=== PATIENT | female | born 1965 | race Hispanic/Latino ===

== ENCOUNTER 2019-08-11 22:59 | Observation (INO) | payer OTHER ==
[~2019-08-11] VITALS: Ht 162.6 cm; Wt 88.5 kg
[2019-08-11 23:44] LABS: BASOPHILS % 0.4 % (0.0-1.0); EOSINOPHILS # (AUTO) 0.2 (0.0-0.4); EOSINOPHILS % 2.4 % (0.0-6.0); HEMATOCRIT 39.3 % (34.2-44.1); HEMOGLOBIN 12.8 g/dL (12.0-16.0); LYMPHOCYTES # (AUTO) 3.1 (1.0-3.2); LYMPHOCYTES % 37.6 % (18.0-39.1); MEAN CORPUSCULAR HGB CONC 32.6 g/dL (31-35); MEAN CORPUSCULAR VOLUME 88.9 fL (81-99); MONOCYTES # (AUTO) 0.7 (0.2-0.8); MONOCYTES % 8.5 % (4.4-11.3); NEUTROPHILS # (AUTO) 4.3 (2.1-6.9); NEUTROPHILS % 50.9 % (38.7-80.0); PLATELET COUNT 239 x10e3/uL (140-360); RED BLOOD COUNT 4.42 x10e6/uL (3.6-5.1); RED CELL DISTRIBUTION WIDTH 13.9 % (11.7-14.4)
[2019-08-11 23:58] LABS: ALANINE AMINOTRANSFERASE 15 IU/L (0-55); ALBUMIN 3.6 g/dL (3.5-5.0); ALBUMIN/GLOBULIN RATIO 0.9 (0.8-2.0); ALKALINE PHOSPHATASE 77 IU/L (40-150); ANION GAP 12.1 mmol/L (8-16); BLOOD UREA NITROGEN 17 mg/dL (7-26); BUN/CREATININE RATIO 21 (6-25); CALCIUM 8.6 mg/dL (8.4-10.2); CARBON DIOXIDE 25 mmol/L (22-29); CHLORIDE 104 mmol/L (98-107); CREATINE KINASE 76 IU/L (29-168); CREATININE, SERUM 0.81 mg/dL (0.57-1.11); EST GLOMERULAR FILTRATION RATE > 60 ML/MIN (60-); GLUCOSE 102 mg/dL (74-118); POTASSIUM 4.1 mmol/L (3.5-5.1); SODIUM 137 mmol/L (136-145)
--- NOTE | 2019-08-12 01:02 | Diagnostic Imaging Report ---
EXAMINATION: CHEST SINGLE (PORTABLE) INDICATION: Chest pain COMPARISON: None FINDINGS: AP view TUBES and LINES: None. LUNGS: Lungs are well inflated. Lungs are clear. There is no evidence of pneumonia or pulmonary edema. PLEURA: No pleural effusion or pneumothorax. HEART AND MEDIASTINUM: The cardiomediastinal silhouette is unremarkable. BONES AND SOFT TISSUES: No acute osseous lesion. Soft tissues are unremarkable. UPPER ABDOMEN: No free air under the diaphragm. IMPRESSION: No acute thoracic radiographic abnormality. Signed by: Yang Dave DO on 08/12/2019 12:58 AM
[2019-08-12] MEDS ORDERED: SODIUM CHLORIDE FLUSH 10 ML SYR INJ PRN (01:15)
[2019-08-12] MEDS ORDERED: MORPHINE SULFATE 2 MG/ML SYR 1ML IV PRN (01:15)
[2019-08-12] MEDS ORDERED: ONDANSETRON HCL INJ 2MG/ML 2ML 2 MG/ML VIAL IV PRN (01:15)
--- OUTSIDE RECORDS SUMMARY | 2019-08-12 01:29 | XMS REPORT ---
Author [facility] Address Unknown Phone Unavailable Care Team Providers Care Computer Aided Design Technician Name Role Phone Jean-Pierre LEBLANC Unavailable Unavailable Problems This patient has no known problems. Allergies, Adverse Reactions, Alerts This patient has no known allergies or adverse reactions. Medications This patient has no known medications. Results Test Description Test Time Test Comments Text Results Atomic Results Result Comments CHEST SINGLE (PORTABLE) 2019-08-12 00:58:00 [place] [id number] Patient Name: DINORAH ALEXANDER MR #: [id number] : 1965 Age/Sex: 54/F Req #: [id number] Adm Physician: Ordered by: JOHNATHON LEBLANC MD Report #: [id number] Location: ER Room/Bed: Procedure: [id number] DX/CHEST SINGLE (PORTABLE) Exam Date: 08/12/19 Exam Time: 0025 REPORT STATUS: Signed EXAMINATION: CHEST SINGLE (PORTABLE) INDICATION: Chest pain COMPARISON: None FINDINGS: AP view TUBES and LINES: None. LUNGS: Lungs are well inflated. Lungs are clear. There is no evidence of pneumonia or pulmonary edema. PLEURA: No pleural effusion or pneumothorax. HEART AND MEDIASTINUM: The cardiomediastinal silhouette is unremarkable. BONES AND SOFT TISSUES: No acute osseous lesion. Soft tissues are unremarkable. UPPER ABDOMEN: No free air under the diaphragm. IMPRESSION: No acute thoracic radiographic abnormality. Signed by: Yang Dave DO on 08/12/2019 12:58 AM Dictated By: YANG DAVE DO Transcribed By: STACY on 08/12/1957 COPY TO: JOHNATHON LEBLANC MD
--- NOTE | 2019-08-12 03:53 | NUR ---
PT PLACED ON HOSPITAL BED FOR PATIENT SAFETY AND COMFORT MEASURES.
[2019-08-12] MEDS: NITROGLYCERIN 2% OINT 1 GM PKT TOP SCH ×3 (06:28→18:00)
[2019-08-12 06:57] LABS: CREATINE KINASE MB 2.5 ng/mL (0-5.0)
--- NOTE | 2019-08-12 07:01 | NUR ---
report given to roe horton
[2019-08-12] MEDS ORDERED: ASPIRIN 81 MG ENTERIC COATED PO SCH (09:00)
[2019-08-12] MEDS ORDERED: FAMOTIDINE 20 MG/2 ML VIAL IV SCH (09:00)
[2019-08-12] MEDS ORDERED: LOSARTAN POTASS50 MG PO (11:59)
[2019-08-12] MEDS ORDERED: TRAZODONE HCL100 MG PO (11:59)
[2019-08-12] MEDS ORDERED: CITALOPRAM HBR40 MG PO (11:59)
[2019-08-12] MEDS ORDERED: ESIDRIX25 MG PO (11:59)
[2019-08-12] MEDS ORDERED: LANSOPRAZOLE30 MG PO (11:59)
[2019-08-12 12:35] VITALS: BP 162/79
[2019-08-12] MEDS ORDERED: ACETAMINOPHEN 325 MG TAB PO PRN (13:45)
[2019-08-12] MEDS ORDERED: METOPROLOL TART50 MG PO ×2 (13:53→15:04)
[2019-08-12 13:54] VITALS: BP 162/79
--- NOTE | 2019-08-12 13:58 | NUR ---
PATIENT ARRIVED ON THE UNIT AT 1216 PER WHEELCHAIR FROM THE ER. PATIENT IN STABLE CONDITION WITH NO S/S OF RESPIRATORY DISTRESS. PATIENT C/O HEADACHE PAIN 04/18- CALL PLACED OUT TO DR. QUEZADA FOR TYLENOL (PATIENT'S REQUEST). PATIENT STATES CHEST PAIN A /10 AT THE MOMENT. SKINS INTACT. TELEMETRY APPLIED. CALL LIGHT IS WITHIN REACH, PATIENT INSTRUCTED TO CALL FOR ASSISTANCE NEEDED.
[2019-08-12] MEDS ORDERED: NON-FORMULARY MEDICATION (Trazodone Hcl 100 MG) PO PRN (14:00)
[2019-08-12] MEDS ORDERED: HYDROCHLOROTHIAZIDE 25 MG TAB PO SCH (14:30)
[2019-08-12] MEDS ORDERED: METOPROLOL TARTRATE 50 MG TAB PO SCH (15:00)
[2019-08-12 16:00] VITALS: BP 148/76
[2019-08-12 17:45] VITALS: BP 146/85
--- NOTE | 2019-08-12 19:41 | NUR ---
PATIENT DISCHARGE HOME- PATIENT OFF THE UNIT AT 1848 PER WHEELCHAIR ACCOMPANIED BY RN TO THE FRONT LOBBY. PATIENT IS IN STABLE CONDITION WITH NO S/S OF RESPIRATORY DISTRESS. NO PAIN VOICED. IV REMOVED WITH TIP INTACT AT 1825. DISCHARGE TEACHING, INSTRUCTIONS, AND MEDICATIONS GIVEN TO THE PATIENT. ALL PERSONAL ITEMS TAKEN WITH THE PATIENT.
[2019-08-12] MEDS ORDERED: TRAZODONE HCL 50 MG TAB PO PRN (21:00)
--- NOTE | 2019-08-12 22:49 | History and Physical ---
PRIMARY CARE PHYSICIAN: Dr. Dewayne Richardson. CHIEF COMPLAINT: Chest pain. HISTORY OF PRESENT ILLNESS: This is a 54-year-old female with past medical history of hypertension and depression, presented with complaints of chest pain and headache that started late last night. She reports missing a dose of her blood pressure medication and when she checked her blood pressure, it was elevated, systolic blood pressure in the 200s, so she called the ambulance and was brought in. She denies any radiating pain to the arm or back. She denies any fever, chills, shortness of breath, diaphoresis, or dizziness. In the ER, blood pressure was 157/87. She was admitted under observation for ACS rule out. PAST MEDICAL HISTORY: 1. Hypertension. 2. Depression. PAST SURGICAL HISTORY: None. FAMILY MEDICAL HISTORY: Reports father has high blood pressure. Mother, none. SOCIAL HISTORY: She denies any tobacco, alcohol, or drug use. ALLERGIES: NO KNOWN ALLERGIES. REVIEW OF SYSTEMS: GENERAL: No fever. HEENT: Headache. No trauma to the head. LUNGS: No shortness of breath or cough. CARDIOVASCULAR: Chest pain is resolved now, 11/18. GI: No nausea, vomiting. NEUROLOGIC: Headache. MUSCULOSKELETAL: No lower extremity edema. Skin: Grossly intact. PHYSICAL ASSESSMENT: VITAL SIGNS: Temperature 97.1, pulse is 72, respirations 19, blood pressure is 162/79, pulse ox is 97% on room air. GENERAL: No acute distress. Only complains of headache due to high blood pressure. HEENT: Normocephalic, atraumatic. LUNGS: Clear to auscultation. CARDIOVASCULAR: Normal rate and rhythm. GI: Soft and nontender. Active bowel sounds. NEUROLOGIC: Alert, awake, oriented x3. MUSCULOSKELETAL: Active ROM. No edema noted. SKIN: Grossly intact. PSYCHIATRIC: Depression and stress due to her son having bipolar. LABORATORY DATA: WBCs 8.35, hemoglobin 12.8, hematocrit 39.3, platelets 239. Sodium 137, potassium 4.1, BUN 17, creatinine 0.81, estimated GFR greater than 60. AST 21, ALT 15. Troponin x2 negative, 0.002 and 0.036, CK 76. IMAGING: Chest x-ray was unremarkable. IMPRESSION: 1. Chest pain due to elevated blood pressure. Ruled out acute coronary syndrome. Troponin x2 negative. No EKG changes. Chest pain likely due to missing blood pressure dose and stress. 2. Accelerated hypertension. We will resume her home metoprolol. We will change dosing to 50 mg b.i.d. instead of 100 mg once daily. We will resume hydrochlorothiazide as well. 3. Headache, likely due to elevated blood pressure. No dizziness or focal weakness noted. We will give Tylenol as needed and lower blood pressure. 4. Depression. We will resume her home medication. PLAN: We will continue to trend her blood pressure. We will give her Tylenol for headache. We will discharge home later on today if headache and blood pressure improves. She is advised on taking her blood pressure medications as prescribed, and reducing stress as much as possible. Follow up with Dr. Richardson in 1 week for blood pressure re-evaluation. Dictated by FLORI Fabian Marian Dunne MD MY/MODL /[id number] cc: Dewayne Richardson
[2019-08-13] MEDS ORDERED: PANTOPRAZOLE SOD 40 MG TABEC PO SCH (07:30)
[2019-08-13] MEDS ORDERED: HYDROCHLOROTHIAZIDE 25 MG TAB PO SCH (09:00)
[2019-08-13] MEDS ORDERED: NON-FORMULARY MEDICATION (Lansoprazole 30 MG) PO SCH (09:00)
[2019-08-13] MEDS ORDERED: NON-FORMULARY MEDICATION (Citalopram Hydrobromide (Citalopram Hbr) 40 MG) PO SCH (09:00)
[2019-08-13] MEDS ORDERED: NON-FORMULARY MEDICATION (Losartan Potassium 50 MG) PO SCH (09:00)
[2019-08-13] MEDS ORDERED: CITALOPRAM HYDROBROMIDE 20 MG TAB PO SCH (09:00)
== END 2019-08-12 15:48 | disposition home or self-care (01) ==
LOC: ER 22:59 → ERHOLD 08-12 01:26 → MED/SURG3 08-12 12:16
PROVIDERS: ADMIT Internal Medicine; ATTEND Internal Medicine
DX: R07.89 Other chest pain (principal); I10 Essential (primary) hypertension; R51 Headache; F32.9 Major depressive disorder, single episode, unspecified; Z82.49 Family history of ischemic heart disease and other diseases of the circulatory system
CPT/HCPCS: 36415 ×2; 71045; 80053; 82550 ×2; 82553 ×2; 84484 ×2; 85025; 93005; 93306; 99284; G0378; J2270

== ENCOUNTER 2022-01-14 14:25 | Emergency (ER) | payer OTHER ==
[~2022-01-14] VITALS: Ht 162.6 cm; Wt 88.5 kg
[~2022-01-14 14:25] MED LIST: CITALOPRAM HBR40 MG PO; ESIDRIX25 MG PO; LANSOPRAZOLE30 MG PO; LOSARTAN POTASS50 MG PO; METOPROLOL TART50 MG PO; TRAZODONE HCL100 MG PO
[2022-01-14] MEDS ORDERED: AMLODIPINE BESYL5 MG PO (14:33)
[2022-01-14] MEDS ORDERED: FUROSEMIDE40 MG PO (14:33)
[2022-01-14] MEDS ORDERED: LOSARTAN POTAS100 MG PO (14:33)
[2022-01-14] MEDS ORDERED: CLONIDINE HCL 0.2 MG TAB PO ONE (14:45)
[2022-01-14 14:59] LABS: BASOPHILS # (AUTO) 0.1 (0.0-0.1); BASOPHILS % 0.6 % (0.0-1.0); EOSINOPHILS # (AUTO) 0.1 (0.0-0.4); EOSINOPHILS % 1.1 % (0.0-6.0); HEMATOCRIT 43.9 % (34.2-44.1); HEMOGLOBIN 14.4 g/dL (12.0-16.0); LYMPHOCYTES % 36.5 % (18.0-39.1); MEAN CORPUSCULAR HEMOGLOBIN 28.9 pg (28-32); MEAN CORPUSCULAR HGB CONC 32.8 g/dL (31-35); MEAN CORPUSCULAR VOLUME 88.2 fL (81-99); MONOCYTES # (AUTO) 0.6 (0.2-0.8); MONOCYTES % 7.3 % (4.4-11.3); NEUTROPHILS # (AUTO) 4.4 (2.1-6.9); NEUTROPHILS % 54.3 % (38.7-80.0); PLATELET COUNT 302 x10e3/uL (140-360); RED BLOOD COUNT 4.98 x10e6/uL (3.6-5.1); RED CELL DISTRIBUTION WIDTH 14.6 % (11.7-14.4)
[2022-01-14] MEDS ORDERED: CLONIDINE HCL 0.1 MG TAB PO NR (15:00)
[2022-01-14] MEDS ORDERED: CLONIDINE HCL 0.1 MG TAB ONE (15:16)
[2022-01-14 15:21] LABS: ALBUMIN 3.9 g/dL (3.5-5.0); ALBUMIN/GLOBULIN RATIO 0.8 (0.8-2.0); ANION GAP 11.1 mmol/L (8-16); CALCIUM 9.7 mg/dL (8.4-10.2); CREATININE, SERUM 0.74 mg/dL (0.57-1.11); POTASSIUM 4.1 mmol/L (3.5-5.1)
[2022-01-14 16:46] VITALS: BP 127/74
== END 2022-01-14 16:48 | disposition home or self-care (01) ==
LOC: ER 14:35
DX: I10 Essential (primary) hypertension (principal); R51.9 Headache, unspecified; F32.A Depression, unspecified
CPT/HCPCS: 36415; 70450; 71045; 80053; 83880; 84484; 85025; 93005; 99284

== ENCOUNTER 2022-05-31 14:18 | Emergency (ER) | payer OTHER ==
[~2022-05-31] VITALS: Ht 162.6 cm; Wt 88.5 kg
[~2022-05-31 14:18] MED LIST changes: +AMLODIPINE BESYL5 MG PO; +FUROSEMIDE40 MG PO; +LOSARTAN POTAS100 MG PO
[2022-05-31] MEDS ORDERED: KETOROLAC TROMETHAMINE 60 MG/2 ML VIAL IM NR (15:15)
[2022-05-31] MEDS ORDERED: KETOROLAC TROMETHAMINE 30 MG/ML VIAL ONE (15:22)
== END 2022-05-31 15:42 | disposition home or self-care (01) ==
LOC: ER 14:42
DX: M54.32 Sciatica, left side (principal); I11.0 Hypertensive heart disease with heart failure; I50.9 Heart failure, unspecified; F32.A Depression, unspecified
CPT/HCPCS: 99282; J1885

== ENCOUNTER 2024-08-05 18:25 | Emergency (ER) | payer OTHER ==
[~2024-08-05] VITALS: Ht 162.6 cm; Wt 88.5 kg
[2024-08-05 18:37] VITALS: PULSE 106; RESP 20; TEMP 98.2
[2024-08-05 19:32] LABS: BASOPHILS # (AUTO) 0.1 (0.0-0.1); BASOPHILS % 0.3 % (0.0-1.0); EOSINOPHILS # (AUTO) 0.1 (0.0-0.4); EOSINOPHILS % 0.3 % (0.0-6.0); HEMATOCRIT 41.7 % (34.2-44.1); HEMOGLOBIN 13.5 g/dL (12.0-16.0); LYMPHOCYTES # (AUTO) 4.1 (1.0-3.2); LYMPHOCYTES % 25.6 % (18.0-39.1); MEAN CORPUSCULAR HEMOGLOBIN 29.3 pg (28-32); MEAN CORPUSCULAR HGB CONC 32.4 g/dL (31-35); MEAN CORPUSCULAR VOLUME 90.5 fL (81-99); NEUTROPHILS # (AUTO) 10.9 (2.1-6.9); NEUTROPHILS % 67.4 % (38.7-80.0); PLATELET COUNT 301 x10e3/uL (140-360); RED BLOOD COUNT 4.61 x10e6/uL (3.6-5.1); RED CELL DISTRIBUTION WIDTH 14.6 % (11.7-14.4); WHITE BLOOD COUNT 16.08 x10e3/uL (4.8-10.8)
[2024-08-05 19:36] LABS: CLARITY,URINE TURBID (CLEAR); COLOR,URINE RED (YELLOW)
[2024-08-05 19:48] LABS: ANION GAP 14.8 mmol/L (8-16); BILIRUBIN,TOTAL 0.2 mg/dL (0.2-1.2); CALCIUM 9.7 mg/dL (8.4-10.2); CREATININE, SERUM 0.75 mg/dL (0.57-1.11); GLUCOSE, URINE NEGATIVE (NEGATIVE); KETONES,URINE NEGATIVE (NEGATIVE); LEUKOCYTE ESTERASE ,URINE TRACE (NEGATIVE); NITRITE,URINE NEGATIVE (NEGATIVE); PH,URINE 7 (5 - 7); POTASSIUM 3.8 mmol/L (3.5-5.1); PROTEIN,URINE DIPSTICK >=300 (NEGATIVE); TOTAL PROTEIN 8.2 g/dL (6.5-8.1)
[2024-08-05 19:49] LABS: BILIRUBIN,URINE NEGATIVE (NEGATIVE); URINE UROBILINOGEN 0.2 mg/dL (0.2 - 1)
[2024-08-05 19:50] LABS: RBC,URINE >50 /HPF (0-5); WBC,URINE (MAN) 0-5 /HPF (0-5)
[2024-08-05] MEDS: ONDANSETRON HCL INJ 2MG/ML 2ML 2 MG/ML VIAL IV STA (20:06)
[2024-08-05] MEDS: SODIUM CHLORIDE 0.9% 1000ML 1,000 ML IV STA (20:06)
[2024-08-05] MEDS: KETOROLAC TROMETHAMINE 30 MG/ML VIAL IV STA (20:06)
[2024-08-05] MEDS ORDERED: CIPRO500 MG PO (20:21)
[2024-08-05] MEDS ORDERED: KETOROLAC TROME10 MG PO (20:43)
[2024-08-05 20:53] VITALS: BP 142/79; PULSE 87; RESP 17; TEMP 98.9; O2SAT 100
== END 2024-08-05 20:52 | disposition home or self-care (01) ==
LOC: ER 18:32
DX: R31.9 Hematuria, unspecified (principal); R10.30 Lower abdominal pain, unspecified; N28.1 Cyst of kidney, acquired; I10 Essential (primary) hypertension; I50.9 Heart failure, unspecified; F32.A Depression, unspecified
CPT/HCPCS: 36415; 74176; 80053; 81001; 83690; 85025; 99284; J1885; J2405; J7030

== ENCOUNTER → 2025-01-06 | Day surgery (SDC) | payer OTHER ==
[~2025-01-06] MED LIST changes: +CEFUROXIME250 MG PO; +CIPRO500 MG PO; +CRESTOR40 MG PO; +FENTANYL CITRATE/PF 100MCG/2 ML INJ ONE; +GLUCAGON FOR INJ 1 MG VIAL ONE; +HYOSCYAMINE SULFATE 0.5 MG/ML INJ ONE; +KETOROLAC TROME10 MG PO; +MIDAZOLAM HCL 2 MG/2 ML VIAL ONE; +MINOXIDIL2.5 MG PO; +OZEMPIC0.25 MG/02 SC; +PANTOPRAZOLE SO40 MG PO; +PROPOFOL IV EMULSION 10 MG/ML 20 ML VIAL ONE
[2025-01-06] MEDS: LACTATED RINGER'S 1,000 ML ONE (10:56)
[2025-01-06 13:20] VITALS: BP 122/80; PULSE 86; RESP 16; O2SAT 98
== END | disposition home or self-care (01) ==
LOC: OR 10:14
PROVIDERS: ATTEND Internal Medicine Gastroenterology
DX: K29.70 Gastritis, unspecified, without bleeding (principal); K63.5 Polyp of colon; K62.1 Rectal polyp; K21.00 Gastro-esophageal reflux disease with esophagitis, without bleeding; K59.09 Other constipation; K31.89 Other diseases of stomach and duodenum; K62.89 Other specified diseases of anus and rectum; K57.30 Diverticulosis of large intestine without perforation or abscess without bleeding; K64.8 Other hemorrhoids; Z71.3 Dietary counseling and surveillance; I10 Essential (primary) hypertension; Z71.89 Other specified counseling; E78.5 Hyperlipidemia, unspecified; F32.A Depression, unspecified; Z01.810 Encounter for preprocedural cardiovascular examination; Z79.85 Long-term (current) use of injectable non-insulin antidiabetic drugs; Z79.899 Other long term (current) drug therapy; Z68.32 Body mass index [BMI] 32.0-32.9, adult
CPT/HCPCS: 43239; 45385; 93005; J1610; J1980; J2250; J2470; J2704; J3010; J7121; 45378

== ENCOUNTER 2025-04-05 10:24 | Inpatient (IN) | payer OTHER ==
[2025-03-30 16:21] LABS: BASOPHILS % 0.5 % (0.0-1.0); EOSINOPHILS # (AUTO) 0.1 (0.0-0.4); EOSINOPHILS % 1.2 % (0.0-6.0); HEMATOCRIT 37.1 % (34.2-44.1); HEMOGLOBIN 12.2 g/dL (12.0-16.0); LYMPHOCYTES # (AUTO) 2.9 (1.0-3.2); LYMPHOCYTES % 36.9 % (18.0-39.1); MEAN CORPUSCULAR HGB CONC 32.9 g/dL (31-35); MEAN CORPUSCULAR VOLUME 88.1 fL (81-99); MONOCYTES # (AUTO) 0.7 (0.2-0.8); MONOCYTES % 8.4 % (4.4-11.3); NEUTROPHILS # (AUTO) 4.1 (2.1-6.9); NEUTROPHILS % 52.7 % (38.7-80.0); PLATELET COUNT 250 x10e3/uL (140-360); RED BLOOD COUNT 4.21 x10e6/uL (3.6-5.1); RED CELL DISTRIBUTION WIDTH 15.2 % (11.7-14.4); WHITE BLOOD COUNT 7.76 x10e3/uL (4.8-10.8)
[2025-03-30 16:38] LABS: CALCIUM 9.4 mg/dL (8.4-10.2); CREATININE, SERUM 0.75 mg/dL (0.57-1.11)
[~2025-04-05] VITALS: Ht 165.1 cm; Wt 88.9 kg
[~2025-04-05 10:24] MED LIST changes: -FENTANYL CITRATE/PF 100MCG/2 ML INJ ONE; -GLUCAGON FOR INJ 1 MG VIAL ONE; -HYOSCYAMINE SULFATE 0.5 MG/ML INJ ONE; -MIDAZOLAM HCL 2 MG/2 ML VIAL ONE; -PROPOFOL IV EMULSION 10 MG/ML 20 ML VIAL ONE
[2025-04-05] MEDS: SODIUM CHLORIDE 0.9% 1000ML 1,000 ML ONE (11:02)
[2025-04-05] MEDS: PIPERACILLIN/TAZOBACTAM 3.375 GM VIAL ONE (11:02)
[2025-04-05] MEDS: CLINDAMYCIN 600MG / 50ML 50 ML IV ONE (11:03)
[2025-04-05] MEDS: GENTAMICIN 80MG/NS 100 ML 200 ML IV ONE (11:04)
[2025-04-05] MEDS ORDERED: LIDOCAINE HCL 2% LOCAL INJ 5 ML SDV VIAL INJ ONE (12:53)
[2025-04-05] MEDS ORDERED: ROCURONIUM BROMIDE 1 ML IV ONE (12:53)
[2025-04-05] MEDS ORDERED: PROPOFOL IV EMULSION 10 MG/ML 20 ML VIAL ONE (12:53)
[2025-04-05] MEDS ORDERED: FENTANYL CITRATE/PF 100MCG/2 ML INJ ONE (13:43)
[2025-04-05] MEDS ORDERED: ACETAMINOPHEN 1000 MG/100 ML 100 ML IV ONE (13:53)
[2025-04-05] MEDS ORDERED: DEXAMETHASONE SOD PHOS INJ 4 MG/ML SDV ONE (13:53)
[2025-04-05] MEDS ORDERED: ONDANSETRON HCL INJ 2MG/ML 2ML 2 MG/ML VIAL ONE (13:53)
[2025-04-05] MEDS ORDERED: SEVOFLURANE INHAL SOLN 250 ML PEN BTL ONE ×2 (13:53→16:52)
[2025-04-05] MEDS ORDERED: EPHEDRINE SULFATE INJ 50 MG/ML VIAL ONE (14:32)
[2025-04-05] MEDS ORDERED: SUGAMMADEX SODIUM 200 MG/2 ML VIAL IV ONE (14:48)
[2025-04-05] MEDS ORDERED: DIPHENHYDRAMINE HCL INJ 50 MG/ML VIAL IM PRN (15:30)
[2025-04-05] MEDS ORDERED: ONDANSETRON HCL INJ 2MG/ML 2ML 2 MG/ML VIAL IV PRN (15:30)
[2025-04-05] MEDS: FENTANYL CITRATE/PF 100MCG/2 ML INJ ONE (15:50)
[2025-04-05 16:36] VITALS: BP 141/85; PULSE 68; TEMP 97.4; O2SAT 100
[2025-04-05] MEDS: SENNA-S TABLET PO SCH (17:00)
[2025-04-05] MEDS: PHENAZOPYRIDINE HCL 100 MG TAB PO PRN (17:02)
[2025-04-05] MEDS: SODIUM CHLORIDE 0.9% 1000ML 1,000 ML IV SCH (17:02)
[2025-04-05 18:22] VITALS: BP 141/85; PULSE 68; RESP 16; TEMP 97.4; O2SAT 100
[2025-04-05] MEDS: ACETAMINOPHEN/CODEINE 300MG - 30MG TAB PO PRN (18:55)
[2025-04-05 19:44] VITALS: PULSE 73; RESP 18; O2SAT 95
[2025-04-05 20:00] VITALS: BP 127/96; PULSE 80; RESP 16; TEMP 97.5; O2SAT 98
[2025-04-06] VITALS (10 sets, daily range): BP systolic 112–137; BP diastolic 63–73; PULSE 64–85; RESP 16–19; TEMP 97.9–98.9; O2SAT 96–99
[2025-04-06] MEDS: ACETAMINOPHEN 1000 MG/100 ML IV PRN (01:03)
[2025-04-06 05:20] LABS: BASOPHILS % 0.1 % (0.0-1.0); HEMATOCRIT 32.1 % (34.2-44.1); HEMOGLOBIN 10.4 g/dL (12.0-16.0); LYMPHOCYTES # (AUTO) 1.6 (1.0-3.2); LYMPHOCYTES % 15.1 % (18.0-39.1); MEAN CORPUSCULAR HEMOGLOBIN 29.4 pg (28-32); MEAN CORPUSCULAR HGB CONC 32.4 g/dL (31-35); MEAN CORPUSCULAR VOLUME 90.7 fL (81-99); MONOCYTES # (AUTO) 0.6 (0.2-0.8); MONOCYTES % 5.3 % (4.4-11.3); NEUTROPHILS # (AUTO) 8.6 (2.1-6.9); NEUTROPHILS % 79.2 % (38.7-80.0); PLATELET COUNT 234 x10e3/uL (140-360); RED BLOOD COUNT 3.54 x10e6/uL (3.6-5.1); WHITE BLOOD COUNT 10.83 x10e3/uL (4.8-10.8)
[2025-04-06 05:52] LABS: ANION GAP 15.2 mmol/L (8-16); CREATININE, SERUM 0.67 mg/dL (0.57-1.11); POTASSIUM 4.2 mmol/L (3.5-5.1)
[2025-04-06] MEDS ORDERED: MINOXIDIL 2.5 MG TAB PO SCH (19:00)
[2025-04-07] VITALS: BP 129/73; PULSE 78; RESP 18; TEMP 97.7; O2SAT 95
[2025-04-07 04:00] VITALS: BP 118/61; PULSE 70; RESP 18; TEMP 98.3; O2SAT 94
[2025-04-07 05:13] LABS: BASOPHILS % 0.2 % (0.0-1.0); EOSINOPHILS % 0.5 % (0.0-6.0); HEMATOCRIT 29.6 % (34.2-44.1); HEMOGLOBIN 9.4 g/dL (12.0-16.0); LYMPHOCYTES % 36.9 % (18.0-39.1); MEAN CORPUSCULAR HEMOGLOBIN 29.3 pg (28-32); MEAN CORPUSCULAR HGB CONC 31.8 g/dL (31-35); MEAN CORPUSCULAR VOLUME 92.2 fL (81-99); MONOCYTES # (AUTO) 0.5 (0.2-0.8); MONOCYTES % 5.7 % (4.4-11.3); NEUTROPHILS # (AUTO) 4.5 (2.1-6.9); NEUTROPHILS % 56.2 % (38.7-80.0); PLATELET COUNT 204 x10e3/uL (140-360); RED BLOOD COUNT 3.21 x10e6/uL (3.6-5.1); RED CELL DISTRIBUTION WIDTH 15.7 % (11.7-14.4); WHITE BLOOD COUNT 8.02 x10e3/uL (4.8-10.8)
[2025-04-07 05:59] LABS: ANION GAP 11.9 mmol/L (8-16); CALCIUM 7.9 mg/dL (8.4-10.2); CREATININE, SERUM 0.7 mg/dL (0.57-1.11); POTASSIUM 3.9 mmol/L (3.5-5.1)
[2025-04-07 09:32] VITALS: BP 143/76; PULSE 71; RESP 17; TEMP 97.9; O2SAT 96
[2025-04-07 09:33] VITALS: BP 143/76; PULSE 71; RESP 17; TEMP 97.9; O2SAT 96
[2025-04-07 09:36] VITALS: BP 143/76
[2025-04-07] MEDS: LOSARTAN POTASSIUM 100 MG TAB PO SCH (09:36)
[2025-04-07] MEDS: CITALOPRAM HYDROBROMIDE 20 MG TAB PO SCH (09:36)
== END 2025-04-07 20:40 | disposition home or self-care (01) | DRG 748 ==
LOC: OR 10:24 → PACU V 15:22 → MED/SURG 16:32
PROVIDERS: ADMIT Internal Medicine; ATTEND Internal Medicine
PROC: 0TUD0KZ Supplement Urethra with Nonautologous Tissue Substitute, Open Approach (ICD-10-PCS; 2025-04-05)
PROC: 0T9B70Z Drainage of Bladder with Drainage Device, Via Natural or Artificial Opening (ICD-10-PCS; 2025-04-05)
PROC: 0JUC0KZ Supplement of Pelvic Region Subcutaneous Tissue and Fascia with Nonautologous Tissue Substitute, Open Approach (ICD-10-PCS; principal; 2025-04-05 13:42)
PROC: 0TSD0ZZ Reposition Urethra, Open Approach (ICD-10-PCS; 2025-04-05 13:42)
DX: N81.10 Cystocele, unspecified (principal); D62 Acute posthemorrhagic anemia; I10 Essential (primary) hypertension; E78.5 Hyperlipidemia, unspecified; F32.A Depression, unspecified; D64.9 Anemia, unspecified; E66.9 Obesity, unspecified; Z68.32 Body mass index [BMI] 32.0-32.9, adult
CPT/HCPCS: 36415; 74420; 80048; 85025; 94799; C1758; C1762; G0378; J1100; J1580; J2003; J2405; J2543; J7030